=== PATIENT | female | born 1975 | race Caucasian/White ===

== ENCOUNTER → 2018-08-03 | Outpatient (CLI) | payer OTHER | LOC: M WHC 06:36 | DX: R92.2 Inconclusive mammogram (principal); R92.0 Mammographic microcalcification found on diagnostic imaging of breast; Z80.3 Family history of malignant neoplasm of breast | CPT/HCPCS: 77067 ==

== ENCOUNTER → 2018-08-12 | Outpatient (CLI) | payer OTHER | LOC: M RAD 14:44 | DX: R92.0 Mammographic microcalcification found on diagnostic imaging of breast (principal) | CPT/HCPCS: 77065 ==

== ENCOUNTER 2018-11-16 10:00 | Outpatient (RCR) | payer OTHER | END 2018-11-25 | LOC: M PT 10:00 | PROVIDERS: ATTEND Surgery | DX: I89.0 Lymphedema, not elsewhere classified (principal) ==

== ENCOUNTER → 2019-10-28 | Outpatient (RCR) | payer OTHER | LOC: M PT 10-25 14:58 | PROVIDERS: ATTEND Surgery | DX: Z51.89 Encounter for other specified aftercare (principal) ==

== ENCOUNTER 2019-11-25 15:45 | Outpatient (RCR) | payer OTHER | END 2019-11-26 | LOC: M PT 15:45 | PROVIDERS: ATTEND Surgery | DX: Z47.89 Encounter for other orthopedic aftercare (principal); D05.12 Intraductal carcinoma in situ of left breast; Z90.13 Acquired absence of bilateral breasts and nipples; R07.89 Other chest pain ==

== ENCOUNTER 2021-11-14 15:14 | Outpatient (RCR) | payer OTHER | END 2021-11-25 | LOC: M PT 15:14 | PROVIDERS: ATTEND Nurse Practitioner Family | DX: Z91.89 Other specified personal risk factors, not elsewhere classified (principal); N64.4 Mastodynia; R07.89 Other chest pain ==

== ENCOUNTER 2023-09-04 06:54 | Day surgery (SDC) | payer OTHER ==
[~2023-09-04] VITALS: Ht 170.2 cm; Wt 87.1 kg
[~2023-09-04 06:54] MED LIST: NS 1,000 ML IV ONE; OMEP40CA4 PO; SEMA2.4P SC; VITA100T59 PO; ZYRTTAB8 PO
[2023-09-04] MEDS ORDERED: LIDOCAINE 2% 100MG/5ML SDV (FOR ANES.) As Ordered ONE (07:41)
[2023-09-04] MEDS ORDERED: propofoL 200 MG/20 ML VIAL As Ordered ONE ×2 (07:41→07:58)
[2023-09-04] MEDS ORDERED: ONDANSETRON 4MG 2ML VIAL As Ordered ONE (07:41)
[2023-09-04 08:02] VITALS: TEMP 97.3
[2023-09-04 08:25] VITALS: BP 112/74; O2SAT 98
== END 2023-09-04 08:28 | disposition home or self-care (01) ==
LOC: M OPP 06:54
PROVIDERS: ATTEND Internal Medicine Gastroenterology
DX: Z12.11 Encounter for screening for malignant neoplasm of colon (principal); Q43.8 Other specified congenital malformations of intestine; Z87.891 Personal history of nicotine dependence; Z79.83 Long term (current) use of bisphosphonates; Z79.899 Other long term (current) drug therapy
CPT/HCPCS: 45378; J2405

== ENCOUNTER → 2023-11-18 | Outpatient (REF) | payer OTHER ==
[~2023-11-18] MED LIST changes: -NS 1,000 ML IV ONE
[2023-11-18 12:55] LABS: PERCENT SATURATION 29.1 % (13.2-45.0)
[2023-11-18 13:00] LABS: FERRITIN 74.5 NG/ML (7.3-270.7)
== END ==
LOC: M LAB REF 12:12
PROVIDERS: ATTEND Internal Medicine
DX: D50.9 Iron deficiency anemia, unspecified (principal)

== ENCOUNTER → 2024-05-18 | Outpatient (REF) | payer OTHER ==
[2024-05-20 15:02] LABS: HPV APTIMA Not Detected (Not Detected)
== END ==
LOC: M SFHCWAGY 15:08
PROVIDERS: ATTEND Nurse Practitioner Family
DX: Z12.4 Encounter for screening for malignant neoplasm of cervix (principal); R87.610 Atypical squamous cells of undetermined significance on cytologic smear of cervix (ASC-US)
CPT/HCPCS: 87624; G0123

== ENCOUNTER → 2024-11-24 | Outpatient (REF) | payer OTHER ==
[2024-11-24 15:18] LABS: PERCENT SATURATION 40.4 % (13.2-45.0)
[2024-11-24 15:22] LABS: FERRITIN 64.8 NG/ML (7.3-270.7)
== END ==
LOC: M LAB REF 12:12
PROVIDERS: ATTEND Internal Medicine
DX: D64.9 Anemia, unspecified (principal)

== ENCOUNTER → 2025-05-23 | Outpatient (REF) | payer OTHER ==
[2025-05-25 14:17] LABS: HPV APTIMA Not Detected (Not Detected)
== END ==
LOC: M PLALAB 09:46
PROVIDERS: ATTEND Advanced Practice Midwife
DX: Z12.4 Encounter for screening for malignant neoplasm of cervix (principal)
CPT/HCPCS: 87624; G0123